=== PATIENT | male | born 1990 | race Two or more races ===

== ENCOUNTER 2020-05-07 17:21 | Emergency (ER) | payer SELFPAY ==
[~2020-05-07] VITALS: Ht 167.6 cm; Wt 81.8 kg
[2020-05-07 17:45] VITALS: BP 132/81
--- NOTE | 2020-05-07 21:39 | PHYS DOC ---
Past Medical History Past Medical History: No Pertinent History Past Surgical History: No Surgical History Smoking Status: Current Every Day Smoker Alcohol Use: None General Adult EDM: Chief Complaint: PENIS PROBLEM HPI: HPI: Patient is a 29 year old male who presents to the emergency department with complaints of irregular penile discharge and burning with urination for the last 2 days. Patient states that symptoms started after he began having intercourse with a new partner. Patient denies any abdominal pain, nausea, vomiting, diarrhea, fever, cough, hematuria, difficulty voiding, or incontinence. He currently denies any pain. Patient states that the pain only occurs during and immediately after urination. Patient states he thinks that he has a sexually transmitted infection. Review of Systems: Review of Systems: Complete review of systems is negative unless otherwise documented in the HPI. Heart Score: Risk Factors: Risk Factors: DM, Current or recent (<one month) smoker, HTN, HLP, family history of CAD, obesity. Risk Scores: Score 0 - 3: 2.5% MACE over next 6 weeks - Discharge Home Score 4 - 6: 20.3% MACE over next 6 weeks - Admit for Clinical Observation Score 7 - 10: 72.7% MACE over next 6 weeks - Early Invasive Strategies Allergies: Allergies: Allergies Coded Allergies Type Severity Reaction Last Updated Verified No Known Drug Allergies 05/07/20 No Physical Exam: PE: Constitutional: Well developed, well nourished, no acute distress, non-toxic appearance. [] HENT: Normocephalic, atraumatic, bilateral external ears normal, nose normal. [] Eyes: PERRLA, EOMI, conjunctiva normal, no discharge. [] Neck: Normal range of motion, no stridor. [] Cardiovascular:Heart rate regular rhythm Lungs & Thorax: Respirations even and unlabored, no retractions, no respiratory distress Skin: Warm, dry, no erythema, no rash. [] Extremities: No cyanosis, ROM intact, no edema. [] Neurologic: Alert and oriented X 3, no focal deficits noted. [] Psychologic: Affect normal, judgement normal, mood normal. [] Current Patient Data: Vital Signs: Vital Signs Date Time Temp Pulse Resp B/P (MAP) Pulse Ox O2 Delivery O2 Flow Rate FiO2 05/07/20 17:45 98.0 60 18 132/81 (98) 99 Room Air 98.0 EKG: EKG: [] Radiology/Procedures: Radiology/Procedures: [] Course & Med Decision Making: Course & Med Decision Making Pertinent Labs and Imaging studies reviewed. (See chart for details) Dx: medical screening exam A medical screening exam was performed, patient was found to have no emergent medical condition. The plan of care would've included testing and treatment for suspected gonorrhea or chlamydia infection. However, the patient eloped after talking with registration. [] [] Dragon Disclaimer: Dragon Disclaimer: This electronic medical record was generated, in whole or in part, using a voice recognition dictation system. Departure Departure Impression: Primary Impression: Encounter for medical screening examination Disposition: HOME, SELF-CARE (Patient eloped after speaking with registration) Condition: STABLE Justicifation of Admission Dx: Justifications for Admission: Justification of Admission Dx: MICHAELA Grayson LAB COURIER May 07, 2020 21:39
== END 2020-05-07 18:11 | disposition home or self-care (01) ==
LOC: ER 17:21
DX: R36.9 Urethral discharge, unspecified (principal); R30.0 Dysuria; F17.200 Nicotine dependence, unspecified, uncomplicated
CPT/HCPCS: 87491; 87591; 99281; 99283